=== PATIENT | male | born 1980 | race Caucasian/White ===

== ENCOUNTER → 2017-08-04 | Emergency (ER) | payer OTHER ==
[~2017-08-04] VITALS: Ht 180.3 cm; Wt 77.1 kg
== END | disposition home or self-care (01) ==
LOC: ER 19:38
DX: M54.2 Cervicalgia (principal)

== ENCOUNTER 2017-08-22 18:52 | Emergency (ER) | payer OTHER ==
[~2017-08-22] VITALS: Ht 180.3 cm; Wt 74.8 kg
== END 2017-08-22 22:48 | disposition home or self-care (01) ==
LOC: ER 18:52
DX: K52.9 Noninfective gastroenteritis and colitis, unspecified (principal)